=== PATIENT | female | born 1960 ===

== ENCOUNTER 2021-03-01 08:35 | Outpatient (CLI) | payer OTHER ==
[~2021-03-01 08:35] MED LIST: FLEXERIL10 MG PO; NABUMETONE750 MG PO
== END 2021-03-01 08:43 | disposition home or self-care (01) ==
LOC: TOM 08:35
DX: K57.33 Diverticulitis of large intestine without perforation or abscess with bleeding (principal)

== ENCOUNTER 2021-06-05 10:35 | Emergency (ER) | payer OTHER ==
[~2021-06-05] VITALS: Ht 157.5 cm; Wt 73.5 kg
== END 2021-06-05 12:52 | disposition home or self-care (01) ==
LOC: ER 10:35
DX: S05.01XA Injury of conjunctiva and corneal abrasion without foreign body, right eye, initial encounter (principal); X58.XXXA Exposure to other specified factors, initial encounter; Y93.9 Activity, unspecified; Y92.9 Unspecified place or not applicable; Y99.9 Unspecified external cause status; Z88.6 Allergy status to analgesic agent

== ENCOUNTER 2021-07-18 10:23 | Emergency (ER) | payer OTHER ==
[~2021-07-18] VITALS: Ht 160 cm; Wt 73.9 kg
[2021-07-18] MEDS ORDERED: INDERAL LA80 MG PO (10:52)
[2021-07-18] MEDS ORDERED: NORFLEX100MG PO (15:24)
== END 2021-07-18 15:35 | disposition home or self-care (01) ==
LOC: ER 10:23
DX: S70.01XA Contusion of right hip, initial encounter (principal); S80.01XA Contusion of right knee, initial encounter; W18.30XA Fall on same level, unspecified, initial encounter; Y93.9 Activity, unspecified; Y92.89 Other specified places as the place of occurrence of the external cause; Y99.9 Unspecified external cause status; Z88.6 Allergy status to analgesic agent

== ENCOUNTER 2022-06-19 07:16 | Outpatient (CLI) | payer OTHER ==
[~2022-06-19 07:16] MED LIST changes: +INDERAL LA80 MG PO; +NORFLEX100MG PO
== END 2022-06-19 07:29 | disposition home or self-care (01) ==
LOC: SONOGRAMA 07:16
PROVIDERS: ATTEND General Practice
DX: R10.9 Unspecified abdominal pain (principal); R10.2 Pelvic and perineal pain

== ENCOUNTER 2022-09-06 09:36 | Outpatient (CLI) | payer OTHER | END 2022-09-06 09:44 | disposition home or self-care (01) | LOC: RAD 09:36 | PROVIDERS: ATTEND Physical Medicine & Rehabilitation | DX: M54.59 Other low back pain (principal); M54.16 Radiculopathy, lumbar region ==

== ENCOUNTER 2022-11-09 11:59 | Outpatient (CLI) | payer OTHER | END 2022-11-09 12:08 | disposition home or self-care (01) | LOC: RAD 11:59 | PROVIDERS: ATTEND Chiropractor | DX: M46.02 Spinal enthesopathy, cervical region (principal); M46.04 Spinal enthesopathy, thoracic region; M46.06 Spinal enthesopathy, lumbar region; M99.1 Subluxation complex (vertebral) ==

== ENCOUNTER 2023-06-11 15:39 | Outpatient (CLI) | payer OTHER | END 2023-06-11 15:43 | disposition home or self-care (01) | LOC: RAD 15:39 | PROVIDERS: ATTEND Surgery | DX: D48.19 Other specified neoplasm of uncertain behavior of connective and other soft tissue (principal) ==

== ENCOUNTER 2023-10-09 15:13 | Outpatient (CLI) | payer OTHER | END 2023-10-09 15:19 | disposition home or self-care (01) | LOC: SONOGRAMA 15:13 | PROVIDERS: ATTEND General Practice | DX: N20.0 Calculus of kidney (principal) ==

== ENCOUNTER 2023-11-15 13:15 | Outpatient (CLI) | payer OTHER | END 2023-11-15 13:24 | disposition home or self-care (01) | LOC: RAD 13:15 | PROVIDERS: ATTEND General Practice | DX: M25.571 Pain in right ankle and joints of right foot (principal) ==

== ENCOUNTER → 2023-11-16 08:51 | Outpatient (CLI) | payer OTHER | END | disposition home or self-care (01) | LOC: SONOGRAMA 08:51 | PROVIDERS: ATTEND General Practice | DX: M25.571 Pain in right ankle and joints of right foot (principal) ==